=== PATIENT | female | born 1980 | race Caucasian/White ===

== ENCOUNTER 2018-01-27 23:12 | Emergency (ER) | payer OTHER ==
[2018-01-28 00:05] LABS: ADD MAN DIFF? NO
[2018-01-28 00:06] LABS: WHITE BLOOD COUNT 6.9 10^3/ul (4.8-10.8)
[2018-01-28 00:06] LABS: BASOPHILS % 0.6 % (0.0-2.0); EOSINOPHILS # 0.2 10^3/ul (0.0-0.5); EOSINOPHILS % 3.1 % (0.0-7.0); HEMATOCRIT 43.8 % (37.0-47.0); HEMOGLOBIN 15.1 g/dl (12.0-16.0); LYMPHOCYTES # 2.9 10^3/ul (0.8-2.9); LYMPHOCYTES % 42.9 % (15.0-51.0); MEAN CORPUSCULAR HEMOGLOBIN 30.7 pg (29.0-33.0); MEAN CORPUSCULAR HGB CONC 34.5 g/dl (32.0-37.0); MEAN PLATELET VOLUME 9.7 fl (7.4-10.4); MONOCYTE # 0.6 10^3/ul (0.3-0.9); MONOCYTES % 8.6 % (0.0-11.0); NEUTROPHIL # 3.1 10^3/ul (1.6-7.5); NEUTROPHILS % 44.5 % (39.0-77.0); PLATELET COUNT 353 10^3/UL (140-415); RED BLOOD COUNT 4.92 10^6/ul (4.20-5.40); RED CELL DISTRIBUTION WIDTH 11.7 % (11.5-14.5)
[2018-01-28] MEDS: LORAZEPAM 2 MG INJ IV (00:07)
[2018-01-28] MEDS: SOD CHLORIDE 0.9% 500 ML IV (00:07)
[2018-01-28 00:26] LABS: ANION GAP 13 (8-16); BLOOD UREA NITROGEN 14 mg/dl (7-20); CALCIUM 9.2 mg/dl (8.4-10.2); CARBON DIOXIDE 25 mmol/L (21-31); CHLORIDE 105 mmol/L (97-110); GLUCOSE 103 mg/dl (70-220); POTASSIUM 3.7 mmol/L (3.5-5.1); SODIUM 139 mmol/L (135-144)
[2018-01-28 00:38] LABS: TROPONIN-I < 0.010 ng/ml (0.000-0.120)
[2018-01-28 00:40] LABS: INR 0.88; PT RATIO 0.9
== END 2018-01-28 01:55 | disposition home or self-care (01) ==
LOC: E/R 23:12
DX: F41.9 Anxiety disorder, unspecified (principal); R40.2252 Coma scale, best verbal response, oriented, at arrival to emergency department; I10 Essential (primary) hypertension; R40.2142 Coma scale, eyes open, spontaneous, at arrival to emergency department; R40.2362 Coma scale, best motor response, obeys commands, at arrival to emergency department; R07.9 Chest pain, unspecified; R51 Headache
CPT/HCPCS: 36415; 70450; 71045; 80048; 81025; 84484; 85025; 85610; 85730; 93005; 96361; 96374; 99285-25

== ENCOUNTER 2018-07-21 13:23 | Emergency (ER) | payer OTHER ==
[2018-07-21] MEDS: ACETAMINOPHEN 325 MG TAB PO (14:29)
[2018-07-21] MEDS: LIDOCAINE/MYLANTA 40 ML BTL PO (14:29)
== END 2018-07-21 16:05 | disposition home or self-care (01) ==
LOC: FTE 13:23
DX: R09.89 Other specified symptoms and signs involving the circulatory and respiratory systems (principal); I10 Essential (primary) hypertension
CPT/HCPCS: 93005; 99283-25